=== PATIENT | male | born 1970 | race African-American/Black ===

== ENCOUNTER 2018-03-20 01:52 | Emergency (ER) | payer OTHER ==
[~2018-03-20] VITALS: Ht 172.7 cm; Wt 79.4 kg
[~2018-03-20 01:52] MED LIST: AMLO5TAB7 PO; HYDR25TA9 PO; PRAV20TA2 PO
[2018-03-20 02:10] VITALS: BP 131/84
--- NOTE | 2018-03-20 02:20 | PHYS DOC ---
Past Medical History Past Medical History: Hypertension Additional Past Medical Histor: did not take bp medication FOR 2 DAYS Past Surgical History: No Surgical History Alcohol Use: Occasionally Drug Use: None Adult General Chief Complaint Chief Complaint: SEXUALLY TRANSMITTED DISEASE HPI HPI Patient is a 47 year old man who presents with STI exposure Patient states he had relations with a woman who told him that she has trichomoniasis this past week. He was last with this woman a week ago. Since then, he's had some dysuria no fevers no penile discharge. Patient has no other complaints. Review of Systems Review of Systems Constitutional: Denies fever or chills Eyes: Denies change in visual acuity, redness, or eye pain HENT: Denies nasal congestion or sore throat Respiratory: Denies cough or shortness of breath Cardiovascular: Denies chest pain or palpitations GI: Denies abdominal pain, nausea, vomiting, bloody stools or diarrhea : with dysuria, no discharge or hematuria Musculoskeletal: Denies back pain or joint pain Integument: Denies rash or skin lesions Neurologic: Denies headache, focal weakness or sensory changes Endocrine: Denies polyuria or polydipsia All other systems were reviewed and found to be within normal limits, except as documented in this note. Current Medications Current Medications Current Medications Medications (Trade) Dose Ordered Sig/Marlin Start Time Stop Time Status Last Admin Dose Admin Azithromycin (Zithromax) 1,000 mg 1X ONCE 03/20/18 03:00 03/20/18 03:01 DC 03/20/18 03:05 1,000 MG Ceftriaxone Sodium (Rocephin Im) 250 mg 1X ONCE 03/20/18 03:00 03/20/18 03:01 DC 03/20/18 03:05 250 MG Lidocaine/Sodium Bicarbonate (Buffered Lidocaine 1%) 3 ml 1X ONCE 03/20/18 03:00 03/20/18 03:01 DC 03/20/18 03:05 3 ML Metronidazole (Flagyl) 2,000 mg 1X ONCE 03/20/18 03:00 03/20/18 03:01 DC 03/20/18 03:05 2,000 MG Allergies Allergies Allergies Coded Allergies Type Severity Reaction Last Updated Verified No Known Drug Allergies 06/23/15 No Physical Exam Physical Exam Constitutional: Well developed, well nourished, no acute distress, non-toxic appearance. HENT: Normocephalic, atraumatic, bilateral external ears normal, oropharynx moist, no oral exudates, nose normal. Eyes: PERRLA, EOMI, conjunctiva normal, no discharge. Neck: Normal range of motion, no tenderness, supple, no stridor. Cardiovascular:Heart rate regular rhythm, no murmur Lungs & Thorax: Bilateral breath sounds clear to auscultation Abdomen: Bowel sounds normal, soft, no tenderness, no masses, no pulsatile masses. : Penis is normal and no lesions. Scrotum is normal testes 2 masses no lesions. He has no penile discharge. Meatus is normal, no erythema or discharge noted. Skin: Warm, dry, no erythema, no rash. Back: No tenderness, no CVA tenderness. Extremities: No tenderness, no cyanosis, no clubbing, ROM intact, no edema. Neurologic: Alert and oriented X 3, normal motor function, normal sensory function, no focal deficits noted. Psychologic: Affect normal, judgement normal, mood normal. Current Patient Data Vital Signs Vital Signs Date Time Temp Pulse Resp B/P (MAP) Pulse Ox O2 Delivery O2 Flow Rate FiO2 03/20/18 02:10 97.8 97 16 131/84 (100) 100 Room Air 97.8 Lab Values Laboratory Tests Test 03/20/18 02:18 Urine Chlamydia DNA (PCR) Negative (Negative) Neisseria gonorrhoeae DNA (PCR) Negative (Negative) EKG EKG [] Radiology/Procedures Radiology/Procedures [] Course & Med Decision Making Course & Med Decision Making Pertinent Labs and Imaging studies reviewed. (See chart for details) Emergency Department Course Patient presents with STI exposure [id number], UTI Patient was stable in the ED. Patient was given Rocephin, Azithromycin and Flagyl. Patient given referral to PCP. Mariah Disclaimer Dragon Disclaimer This electronic medical record was generated, in whole or in part, using a voice recognition dictation system. Departure Departure Impression: Primary Impression: STD exposure Disposition: 01 HOME, SELF-CARE Condition: STABLE Referrals: NO PCP (PCP) JUANITA BLANCO MD Follow-up tomorrow for further evaluation Patient Instructions: Sexually Transmitted Disease, [id number] DONOVAN SARAVIA MD Mar 20, 2018 02:20
[2018-03-20] MEDS ORDERED: LIDOCAINE WITH 8.4% SOD BICARB 3 ML DISP.SYRIN. INJ ONE (03:00)
[2018-03-20] MEDS ORDERED: cefTRIAXone IM 250 MG VIAL IM ONE (03:00)
[2018-03-20] MEDS ORDERED: AZITHROMYCIN 250 MG TABLET. PO ONE (03:00)
[2018-03-20] MEDS ORDERED: metroNIDAZOLE 500 MG TABLET PO ONE (03:00)
== END 2018-03-20 03:27 | disposition home or self-care (01) ==
LOC: ER 01:52
DX: Z20.2 Contact with and (suspected) exposure to infections with a predominantly sexual mode of transmission (principal); R30.0 Dysuria; I10 Essential (primary) hypertension
CPT/HCPCS: 87491; 87591; 96372; 99284; J0696; Q0144

== ENCOUNTER → 2020-03-25 | Outpatient (CLI) | payer OTHER ==
[~2020-03-25] MED LIST changes: +AMLO5TAB10 PO; -AMLO5TAB7 PO; +HYDR-2145 PO; -HYDR25TA9 PO
== END | disposition home or self-care (01) ==
LOC: SPEC 12:58
PROVIDERS: ATTEND Podiatrist
DX: L02.612 Cutaneous abscess of left foot (principal)
CPT/HCPCS: 87070; 87077; 87186